=== PATIENT | male | born 1975 | race Caucasian/White ===

== ENCOUNTER 2017-08-19 22:40 | Observation (INO) ==
[2017-08-20] MEDS ORDERED: Naloxone 0.4 MG/ML INJ IVP PRN (01:57)
[2017-08-20] MEDS ORDERED: D5% in Water 1,000 ML IVC PRN ×2 (02:02→13:26)
[2017-08-20] MEDS ORDERED: *HR* Dextrose 50 % in Water (Syg) 50 ML SYRINGE IVP PRN ×2 (02:02→13:26)
[2017-08-20] MEDS ORDERED: Dextrose Gel 15 GM/37.5 ML TUBE PO PRN ×4 (02:02→13:26)
--- NOTE | 2017-08-20 02:13 | Internal Med History&Physical ---
Date of Encounter: 08/20/17 Time of Encounter: 01:40 Internal Medicine - H&P: HPI Chief complaint: transferred from [place] [facility] for chest pain Admitted From: Hospital to Hospital Transfer Plans for Post Hospital Care: Home History of present illness: Mr. Arango is a 41 year old male with PMH of HTN, DM, HLD who was transferred from [facility] for evaluation of chest pain. Pt reported of having acute onset of localized, sharp, substernal chest pain that started yesterday evening. He reported of worsening of pain with deep inspiration. Reported of nausea and diaphoresis with the chest pain. Pt has extensive family cardiac history with both parents diagnosed with CAD before the age of 40. His pain is reproducible with palpation, however he reported resolution of pain after receiving nitroglycerin SL. At this time he is resting in bed and does not appear to be in any distress, however reports of persistent chest pain, he does however state that his pain is better since his hospitalization. EKG at [place]: NSR labs: WBC: 12.4 Hgb: 17.1 Hct: 49.6 Plt: 272 TNI: <0.012, Na: 140, K: 3.8, BUN: 14, CREA: 0.87, Gluc: 223 Past Med Surg Social Fam HX - Past Medical History Medical history: diabetes, hyperlipidemia, hypertension Psychiatric history: no psych history - Past Surgical History Surgical History: no surgical history - Social History Smoking Status: Never smoker Smokeless Tobacco Status: No Alcohol use: none Drug use: none - Family History Father Name: BRIDGER Living Status: Still Living Hx Family Cardiac Disorders: Yes (TRIPLE BYPASS) Internal Medicine - H&P: Meds Sulfamethoxazole/Trimeth DS [Bactrim DS] 1 each PO BID #20 tablet 06/04/15 [Rx] cephALEXin [Keflex] 500 mg PO QID #40 capsule 06/04/15 [Rx] Canagliflozin [Invokana] 100 mg PO DAILY 08/20/17 [History] 3 Allergy/AdvReac Type Severity Reaction Status Date / Time No Known Allergies Allergy Verified 06/04/15 19:33 All Systems PM: A 10-system review of systems was performed and is negative for pertinent findings except as documented above in the HPI. - Constitutional Constitutional: as per HPI, no chills, no fatigue, no fever(s), no night sweats , no weakness - Constitutional Vitals: Temp Pulse Resp BP Pulse Ox 97.6 F 94 18 113/78 96 08/20/17 00:44 08/20/17 00:44 08/20/17 00:44 08/20/17 00:44 08/20/17 00:44 General appearance: Present: A&O X 3, no acute distress, obese - Head Head exam: Present: atraumatic, normocephalic - Eye Eye exam: Present: conjuntiva pink, sclera anicteric - Respiratory Respiratory exam: Present: CTAB. Absent: accessory muscle use, rales, rhonchi, wheezes - Cardiovascular Cardiovascular exam: Present: RRR, +S1, +S2. Absent: diastolic murmur, gallop, rubs, systolic murmur - GI/Abdominal GI/Abdominal exam: Present: normal bowel sounds, soft, no peritoneal signs. Absent: distended, tenderness - Extremities Exam Extremities exam: Present: warm, radial pulses palpable and symmetrical. Absent : calf tenderness, pedal edema - Neurological Exam Neurological exam: Present: oriented X3 - Assessment and plan (1) Chest pain Current Visit: Yes Status: Acute Assessment and plan: given family history and risk factors will admit to r/o ACS nuclear stress test in am npo after midnight trend serial TNI f/u 2D echo tele monitoring nitroglycerin SL prn chest pain ASA, lipitor will continue to closely monitor consider cardiology evaluation if above test findings are abnormal Qualifiers: Chest pain type: unspecified Qualified Code(s): R07.9 - Chest pain, unspecified (2) Diabetes mellitus Current Visit: Yes Status: Chronic Assessment and plan: hold oral antihyperglycemic agents Insulin SS monitor accuchecks q4h while NPO and ACHS once diet is resumed IV fluids while NPO continue to closely monitor FS and BG Qualifiers: Diabetes mellitus type: type 2 Diabetes mellitus mcfp insulin use: without mcfp use Diabetes mellitus complication status: with unspecified complications Qualified Code(s): E11.8 - Type 2 diabetes mellitus with unspecified complications (3) Hypertension Current Visit: Yes Status: Chronic Assessment and plan: BP within acceptable range continue home meds Qualifiers: Hypertension type: essential hypertension Qualified Code(s): I10 - Essential (primary) hypertension (4) Hyperlipidemia Current Visit: Yes Status: Chronic Assessment and plan: continue home dose of statin Qualifiers: Hyperlipidemia type: unspecified Qualified Code(s): E78.5 - Hyperlipidemia , unspecified (5) DVT prophylaxis Current Visit: Yes Status: Acute Assessment and plan: heparin SQ (6) Obesity (BMI 30.0-34.9) Current Visit: Yes Status: Acute - Time Spent With Patient Total time spent is greater than 50% in coordination of care (as documented) at patient's floor/unit and/or counseling patient:
[2017-08-20] MEDS: 0.9 % Sodium Chloride 1,000 ML IVC SCH ×2 (02:36→21:27)
[2017-08-20 02:41] LABS: Basophils # 0.1 K/mcL (0.0-0.2); Basophils % 0.4 %; Eosinophils % 0.1 %; Hematocrit 47.9 % (37.5-50.1); Hemoglobin 16.5 g/dL (12.9-16.9); Immature Granulocytes % 0.5 % (0-4); Lymphocytes # 1.1 K/mcL (0.6-4.6); Lymphocytes % 5.7 %; Mean Corpuscular HGB Conc 34.4 g/dL (31.6-35.5); Mean Corpuscular Volume 78.4 fL (83.0-100.0); Mean Platelet Volume 10.3 fL (9.4-12.4); Monocytes # 1.1 K/mcL (0.0-1.3); Monocytes % 5.7 %; Neutrophils # 16.6 K/mcL (1.6-8.9); Platelet Count 214 K/mcL (140-400); Red Blood Count 6.11 M/mcL (4.19-5.50); Red Cell Distribution Width 13.5 % (11.5-14.5); Segmented Neutrophils % 87.6 %
[2017-08-20] MEDS: Insulin LISPRO 300 UNITS/3 ML VIAL SQ SCH ×4 (02:46→17:52)
[2017-08-20] MEDS: Nitroglycerin 0.4 MG TAB.SUBL SL PRN (02:47)
[2017-08-20 03:01] LABS: BUN/Creatinine Ratio 17 (6-26); Blood Urea Nitrogen 16 mg/dL (6-20); Calcium 9.5 mg/dL (8.6-10.3); Carbon Dioxide 22 mEq/L (23-29); Chloride 100 mEq/L (98-107); Glucose 264 mg/dL (70-105); Osmolality,Calculated 290 (280-300); Potassium 4.3 mEq/L (3.5-5.1); Sodium 135 mEq/L (136-145); eGFR For African Americans > 60 (> 60); eGFR For Non-African Americans > 60 (> 60)
[2017-08-20 03:02] LABS: Chol/HDL Ratio 2.9 (0-4.9); Magnesium 2.2 mg/dL (1.6-2.6); Phosphorous 4.3 mg/dL (2.7-4.5)
[2017-08-20] MEDS: *HR* Heparin 5,000 UNIT/ML VIAL SQ SCH ×2 (07:37→17:07)
--- NOTE | 2017-08-20 11:25 | Event Note ---
Date of Encounter: 08/20/17 Time of Encounter: 11:30 seen and assessed. Agree with plan per night time hospitalist. 1. F/U 2d echo and stress test for chest pain 2. Leukocytosis and tachycardia. WBC is 18. Unclear etiology. Obtain pancultures , urinalysis, cxr. Started empircally on zosyn. can d/c antibiotics if workup is negative
[2017-08-20] MEDS ORDERED: Piperacillin/Tazobactam 3.375 GM in 0.9 % Sodium Chloride Mini Bag 100 ML IVPB SCH (12:00)
[2017-08-20] MEDS ORDERED: Regadenoson 0.4 MG/5 ML SYRINGE IVP ONE (12:06)
[2017-08-20] MEDS: Regadenoson 0.4 MG/5 ML SYRINGE IVP ONE ×2 (12:07→12:18)
[2017-08-20] MEDS: Aspirin 81 MG TAB.CHEW PO SCH (14:45)
--- NOTE | 2017-08-20 15:51 | Cardiology Consult Note ---
<Mekhi Wagner Delia - Last Filed: 08/20/17 15:46> Date of Encounter: 08/20/17 Time of Encounter: 15:46 Assessment and Plan (1) Chest pain Current Visit: Yes Status: Acute C/o chest pain and diaphoresis. Pain mildy reproducible. Troponin negative. EKG with no acute ST changes. Stress test was negative. Cardiac risk factors include significant family history (brother 39 years old, both parents with IN in 40's, grandfather IN at 51), and DM. Continued monitoring verses C discussed. Due to continued chest pain and multiple risk factors patient agrees to [facility]. Qualifiers: Chest pain type: unspecified Qualified Code(s): R07.9 - Chest pain, unspecified Discussion w patient/family: The assessment and plan as outlined above was discussed with the patient and/or family members who expressed understanding and agreement. All questions were answered. Thank you for involving us in the care of your patient. Please call with any questions. History of Present Illness Consult date: 08/20/17 Consult reason: chest pain Chief complaint: Chest pain, diaphoresis History of present illness: Mr. Arango is a 41 year old male with past medical history of DM type II and traumatic brain injury who presented with the c/o mid-sternal chest pain starting last night. His family reports severe chest pain associated with diaphoresis. He denies aggravating factors. He also developed diarrhea shortly after. Family says it is not uncommon for him to have diarrhea. He denies SOB. Past Med Surg Social Fam HX - Past Medical History Medical history: diabetes Psychiatric history: no psych history - Past Surgical History Surgical History: no surgical history - Social History Smoking Status: Never smoker Smokeless Tobacco Status: No Alcohol use: none Drug use: none - Family History Father Name: BRIDGER Living Status: Still Living Hx Family Cardiac Disorders: Yes (TRIPLE BYPASS) Medications and Allergies Atorvastatin Calcium [Lipitor] 80 mg PO HS 08/20/17 [History] Canagliflozin [Invokana] 100 mg PO DAILY 08/20/17 [History] Dulaglutide [Trulicity] 0.5 ml SQ QWEEK 08/20/17 [History] Insulin ASPART [NovoLOG] 4 units SQ TIDWM 08/20/17 [History] Ramipril [Altace] 5 mg PO DAILY 08/20/17 [History] 3 Allergy/AdvReac Type Severity Reaction Status Date / Time No Known Allergies Allergy Verified 08/20/17 10:06 All Systems Review: The remainder of the systems were reviewed and are negative Physical Examination Vital Signs, Last 4 Hours Temp Pulse Resp BP Pulse Ox 08/20/17 14:10 97.9 F 89 16 119/77 98 General: Conversant, No Apparent Distress HEENT: Atraumatic, Normocephaly, Mucus Membranes Moist Neck: No JVD, Normal carotid pulses Cardiac: Reg Rate and Rhythm, Normal S1 and S2, No Murmur Lungs: Normal Breath Sounds, No Wheeze, Rales, Rhonchi Neuro: Alert and responsive, No focal deficits noted Abdomen: Soft, Non-Tender Skin: No rashes noted on visualized skin Musculoskeletal: Other (c/o pain with palpation) Extremities: No Clubbing, No Cyanosis, No Edema, Normal Pulses Results 08/20/17 02:31 08/20/17 02:31 Lab Results 08/20/17 08/20/17 08/20/17 02:31 02:31 02:31 WBC 18.9 H Hgb 16.5 Hct 47.9 Plt Count 214 Sodium 135 L Potassium 4.3 Chloride 100 Carbon Dioxide 22 L BUN 16 Creatinine 0.96 Glucose 264 H Calcium 9.5 Magnesium 2.2 Troponin I 08/20/17 08/20/17 08/20/17 02:31 08:20 14:38 WBC Hgb Hct Plt Count Sodium Potassium Chloride Carbon Dioxide BUN Creatinine Glucose Calcium Magnesium Troponin I < 0.03 < 0.03 < 0.03 - Imaging and Cardiology Stress Test: report reviewed - EKG Interpretation EKG results cardiology: personally reviewed Consult Discharge Plan - Plan Referrals: Cony Lane MD [Primary Care Provider] - <Mackenzie Kam - Last Filed: 08/20/17 16:27> Date of Encounter: 08/20/17 - Attending Attestation I have personally performed a face to face evaluation on this patient. I have reviewed and agree with the care plan. History and Exam by me shows: Unstable Angina with multiple CRF's and ongoing chest pain despite negative stress test. Very strong family history of CAD. C is reasonable Assessment and Plan Discussion w patient/family: The assessment and plan as outlined above was discussed with the patient and/or family members who expressed understanding and agreement. All questions were answered. Thank you for involving us in the care of your patient. Please call with any questions. History of Present Illness History of present illness: Mr. Arango is a 41 year old male All Systems Review: The remainder of the systems were reviewed and are negative Physical Examination Vital Signs, Last 4 Hours Temp Pulse Resp BP Pulse Ox 08/20/17 14:10 97.9 F 89 16 119/77 98 Results 08/20/17 02:31 08/20/17 02:31 Lab Results 08/20/17 08/20/17 08/20/17 02:31 02:31 02:31 WBC 18.9 H Hgb 16.5 Hct 47.9 Plt Count 214 Sodium 135 L Potassium 4.3 Chloride 100 Carbon Dioxide 22 L BUN 16 Creatinine 0.96 Glucose 264 H Calcium 9.5 Magnesium 2.2 Troponin I 08/20/17 08/20/17 08/20/17 02:31 08:20 14:38 WBC Hgb Hct Plt Count Sodium Potassium Chloride Carbon Dioxide BUN Creatinine Glucose Calcium Magnesium Troponin I < 0.03 < 0.03 < 0.03
[2017-08-20] MEDS: MetroNIDAZOLE 500 MG/100 ML 500 MG/100 ML BAG IVPB SCH (17:06)
[2017-08-20] MEDS: Insulin DETEMIR 100 UNIT/ML X5UNITS SQ SCH (21:24)
[2017-08-21 01:46] LABS: Basophils # 0.1 K/mcL (0.0-0.2); Basophils % 0.8 %; Eosinophils # 0.1 K/mcL (0.0-0.6); Eosinophils % 2.1 %; Hematocrit 40.9 % (37.5-50.1); Immature Granulocytes % 0.3 % (0-4); Lymphocytes # 2.8 K/mcL (0.6-4.6); Lymphocytes % 42.9 %; Mean Corpuscular HGB Conc 34.2 g/dL (31.6-35.5); Mean Corpuscular Hemoglobin 27.5 pg (28.0-33.3); Mean Corpuscular Volume 80.2 fL (83.0-100.0); Mean Platelet Volume 10.2 fL (9.4-12.4); Monocytes # 0.6 K/mcL (0.0-1.3); Monocytes % 8.7 %; Platelet Count 183 K/mcL (140-400); Red Cell Distribution Width 13.7 % (11.5-14.5); Segmented Neutrophils % 45.2 %
[2017-08-21 02:04] LABS: BUN/Creatinine Ratio 22 (6-26); Blood Urea Nitrogen 22 mg/dL (6-20); Calcium 8.2 mg/dL (8.6-10.3); Carbon Dioxide 27 mEq/L (23-29); Chloride 105 mEq/L (98-107); Glucose 215 mg/dL (70-105); Osmolality,Calculated 298 (280-300); Potassium 3.9 mEq/L (3.5-5.1); Sodium 139 mEq/L (136-145); eGFR For African Americans > 60 (> 60); eGFR For Non-African Americans > 60 (> 60)
[2017-08-21] MEDS: MetroNIDAZOLE 500 MG/100 ML 500 MG/100 ML BAG IVPB SCH ×4 (03:17→23:47)
[2017-08-21] MEDS: Nitroglycerin 0.4 MG TAB.SUBL SL PRN ×2 (03:17→03:26)
[2017-08-21] MEDS: *HR* Heparin 5,000 UNIT/ML VIAL SQ SCH ×2 (06:40→18:06)
[2017-08-21] MEDS: Insulin LISPRO 300 UNITS/3 ML VIAL SQ SCH ×3 (07:54→18:06)
[2017-08-21] MEDS: Aspirin 81 MG TAB.CHEW PO SCH (08:11)
[2017-08-21] MEDS ORDERED: 0.9 % Sodium Chloride 1,000 ML ONE ×2 (08:55→09:32)
[2017-08-21] MEDS ORDERED: ISOVUE-370 200 ML INFUS..BTL IV ONE (08:55)
[2017-08-21] MEDS ORDERED: *HR* Heparin 10,000 UNIT/10 ML VIAL ONE (08:55)
[2017-08-21] MEDS ORDERED: Heparin 1,000 UNITS/500 mL 500 ML ONE (08:55)
--- NOTE | 2017-08-21 08:55 | Event Note ---
Date of Encounter: 08/21/17 Time of Encounter: 08:53 - Cardiology Event Note Mr. Arango continues to have chest pain today. Denies SOB. C not unreasonable for angina despite normal stress test in the setting of multiple cardiac risk factors. Patient and family agree to proceed as planned. All questions answered.
[2017-08-21] MEDS ORDERED: Nitroglycerin 1,000 MCG/10 ML VIAL IV ONE (08:56)
[2017-08-21] MEDS ORDERED: *HR* Bivalirudin 250 MG VIAL IVC ONE (09:09)
[2017-08-21] MEDS ORDERED: *HR* Midazolam HCl 2 MG/2 ML VIAL ONE (09:45)
--- NOTE | 2017-08-21 09:54 | Pre-Sedation Evaluation ---
Pre-sedation evaluation - Pre-sedation checklist Date of procedure: 08/21/17 Procedure: heart cath Recent Vitals: Last Vital Signs Temp 98.7 F 08/21/17 07:00 Pulse 83 08/21/17 07:00 Resp 16 08/21/17 07:00 BP 109/64 08/21/17 07:00 Pulse Ox 95 08/21/17 07:00 H&P (including ROS) documented in medical record: Yes Previous reaction to sedatives/anesthetics: Unknown Dietary Status: NPO after Midnight Airway Assessment: Patient can open mouth completely, TMJ function normal Dentition: No loose teeth or bridges Possible difficult airway: No ASA Classification *see protocol: CLASS II-Mild systemic disease Plan of Care: Pt appropriate candidate for procedure/moderate/conscious sedation , Risks/benefits of procedure/sedation discussed w/ patient/family, If not NPO; Risk of intake outweiged by necessity to perform procedure
[2017-08-21] MEDS ORDERED: 0.9 % Sodium Chloride 1,000 ML IVC SCH (11:00)
--- NOTE | 2017-08-21 12:13 | Internal Med Progress Note ---
Date of Encounter: 08/21/17 Time of Encounter: 12:08 - Assessment and plan (1) Chest pain Current Visit: Yes Status: Acute Assessment and plan: 41-year-old male with CV risk factors occluding obesity, hypertension, hyperlipidemia, and diabetes presented with acute onset of chest pain. It is typical chest pain per patient description. He underwent stress test, echocardiogram, and a left heart catheter, which all revealed normal results. Cardiology recommended GI workup. Discussed with patient about all the test result, we will order CT of chest and abdomen. We will will consult GI if needed. Qualifiers: Chest pain type: unspecified Qualified Code(s): R07.9 - Chest pain, unspecified (2) Diabetes mellitus Current Visit: Yes Status: Chronic Assessment and plan: Continue home insulin regimen, continue insulin sliding scale. 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 care home use Diabetes mellitus complication status: with unspecified complications Qualified Code(s): E11.8 - Type 2 diabetes mellitus with unspecified complications (3) Hypertension Current Visit: Yes Status: Chronic Assessment and plan: BP within acceptable range continue home meds Qualifiers: Hypertension type: essential hypertension Qualified Code(s): I10 - Essential (primary) hypertension (4) Hyperlipidemia Current Visit: Yes Status: Chronic Assessment and plan: continue home dose of statin Qualifiers: Hyperlipidemia type: unspecified Qualified Code(s): E78.5 - Hyperlipidemia , unspecified (5) DVT prophylaxis Current Visit: Yes Status: Acute Assessment and plan: heparin SQ (6) Obesity (BMI 30.0-34.9) Current Visit: Yes Status: Acute - Time Spent With Patient Total time spent is greater than 50% in coordination of care (as documented) at patient's floor/unit and/or counseling patient: Greater than 35 minutes - Subjective Interval history: Patient just came back from catheter lab, he currently has no chest pain, he denies any fever, chills, or night sweats. - Constitutional Vitals: Temp Pulse Resp BP Pulse Ox 98.3 F 70 16 122/89 98 08/21/17 11:36 08/21/17 11:36 08/21/17 11:36 08/21/17 11:36 08/21/17 11:36 General appearance: Present: A&O X 3, no acute distress, obese Exam: PHYSICAL EXAMINATION: GENERAL APPEARANCE: The patient is alert, oriented and in no acute distress. HEENT: Head is normocephalic. The sinuses are nontender. Pupils are equal and reactive. The nares are patent. Oropharynx clear without lesions. NECK: Supple without lymphadenopathy. HEART: Regular rate and rhythm. LUNGS: No crackles or wheezes are heard. ABDOMEN: Soft, nontender, nondistended with good bowel sounds heard. Inguinal area is normal. EXTREMITIES: Without cyanosis, clubbing or edema. NEUROLOGICAL: Gross nonfocal. SKIN: Warm and dry without any rash. Internal Medicine: Result - Labs CBC & Chem 7: 08/21/17 01:30 08/21/17 01:30 Labs: Short CBC 08/21/17 Range/Units 01:30 WBC 6.6 D (4.3-11.1) K/mcL Hgb 14.0 D (12.9-16.9) g/dL Hct 40.9 (37.5-50.1) % Plt Count 183 (140-400) K/mcL Neutrophils # 3.0 (1.6-8.9) K/mcL BMP 08/21/17 01:30 Sodium 139 Potassium 3.9 Chloride 105 Carbon Dioxide 27 BUN 22 H Creatinine 0.99 Glucose 215 H Calcium 8.2 L Cardiac Enzymes 08/20/17 Range/Units 14:38 Troponin I < 0.03 (< 0.04) ng/mL - Impressions Impressions Echocardiogram 08/20/17 02:00 Impressions: LVEF 60-65%. Normal LV chamber size, wall thickness and function. Mild left ventricular diastolic dysfunction. Normal right ventricular structure and function. No evidence of pulmonary hypertension. No significant valvular dysfunction. Left Ventricular Wall Motion: Rest Echo Findings All wall segments showed normal motion. Findings: Study Quality * Technically adequate exam. ECG Findings * Normal sinus rhythm. Left Ventricle * LVEF 60-65%. * Normal LV chamber size, wall thickness and function. * Mild left ventricular diastolic dysfunction. Right Ventricle * Normal right ventricular structure and function. Left Atrium * Normal left atrial size. Right Atrium * Normal right atrial size. Aortic Valve * Trileaflet aortic valve with normal function. * No aortic regurgitation. * No aortic stenosis. Mitral Valve * Normal mitral valve structure and function. * No mitral regurgitation. * No mitral stenosis. Tricuspid Valve * Normal tricuspid valve structure and function. * Trace tricuspid regurgitation. * No evidence of pulmonary hypertension. Pulmonic Valve * Normal pulmonic valve structure and function. * No pulmonic regurgitation. Aorta * Normally sized aortic root. Pericardium * The pericardium appears normal. IVC * Normal IVC dimensions and inspiratory collapse. Pulmonary Artery * Normal visualized portions of the main pulmonary artery. Chest X-Ray 08/20/17 11:28 IMPRESSION: No acute findings D/ / Nelia Peralta MD / Nelia Peralta MD Interpreting Provider: Nelia Peralta MD Consult Discharge Plan - Plan Referrals: Cony Lane MD [Primary Care Provider] -
--- NOTE | 2017-08-21 13:14 | Event Note ---
Date of Encounter: 08/21/17 Time of Encounter: 12:00 - Cardiology Event Note Discussed with Dr. Blunt. [facility] showed non-obstructive disease. No intervention. Recommend GI evaluation for on-going symptoms. Cardiology will sign off. Call with questions.
[2017-08-21] MEDS: Insulin DETEMIR 100 UNIT/ML X5UNITS SQ SCH (22:07)
[2017-08-22 00:58] LABS: Basophils % 0.7 %; Eosinophils # 0.1 K/mcL (0.0-0.6); Eosinophils % 1.2 %; Immature Granulocytes % 0.2 % (0-4); Lymphocytes # 2.2 K/mcL (0.6-4.6); Lymphocytes % 38.7 %; Mean Corpuscular HGB Conc 33.3 g/dL (31.6-35.5); Mean Corpuscular Hemoglobin 26.7 pg (28.0-33.3); Mean Corpuscular Volume 80.1 fL (83.0-100.0); Mean Platelet Volume 10.4 fL (9.4-12.4); Monocytes # 0.5 K/mcL (0.0-1.3); Monocytes % 8.7 %; Neutrophils # 2.9 K/mcL (1.6-8.9); Platelet Count 163 K/mcL (140-400); Red Blood Count 4.87 M/mcL (4.19-5.50); Red Cell Distribution Width 13.8 % (11.5-14.5); Segmented Neutrophils % 50.5 %
[2017-08-22 01:17] LABS: BUN/Creatinine Ratio 18 (6-26); Blood Urea Nitrogen 17 mg/dL (6-20); Carbon Dioxide 24 mEq/L (23-29); Chloride 109 mEq/L (98-107); Glucose 261 mg/dL (70-105); Osmolality,Calculated 297 (280-300); Potassium 4.1 mEq/L (3.5-5.1); Sodium 138 mEq/L (136-145); eGFR For African Americans > 60 (> 60); eGFR For Non-African Americans > 60 (> 60)
[2017-08-22] MEDS: MetroNIDAZOLE 500 MG/100 ML 500 MG/100 ML BAG IVPB SCH (08:13)
[2017-08-22] MEDS: Aspirin 81 MG TAB.CHEW PO SCH (08:13)
[2017-08-22] MEDS: *HR* Heparin 5,000 UNIT/ML VIAL SQ SCH (08:13)
[2017-08-22] MEDS: Insulin LISPRO 300 UNITS/3 ML VIAL SQ SCH (08:18)
[2017-08-22] MEDS ORDERED: Isovue-370 500 ML INFUS..BTL IV ONE (11:58)
[2017-08-22 15:14] VITALS: BP 131/76
--- NOTE | 2017-08-22 15:31 | Discharge Summary ---
- NOTES TO OUTPATIENT PROVIDER Notes to Outpatient Provider: Epigastric pain, ACS ruled out; Orders not resulted at time of discharge: Pending orders 08/20/17 02:00 NM syd perf SPECT multi [NM] Routine 08/20/17 13:49 Culture,Blood [BC] Routine 08/23/17 04:00 Basic Metabolic Panel AM 0400 CBC [Complete Blood Count] [HEME] AM 0400 08/24/17 04:00 Basic Metabolic Panel AM 0400 CBC [Complete Blood Count] [HEME] AM 04008/25/17 04:00 Basic Metabolic Panel AM 0400 CBC [Complete Blood Count] [HEME] AM 0400 08/26/17 04:00 Basic Metabolic Panel AM 0400 CBC [Complete Blood Count] [HEME] AM 040 Date of Encounter: 08/22/17 Time of Encounter: 12:20 - Discharge Diagnosis (1) Chest pain Priority: Primary Status: Acute Qualifiers: Chest pain type: unspecified Qualified Code(s): R07.9 - Chest pain, unspecified (2) Diabetes mellitus Priority: Secondary Status: Chronic Qualifiers: Diabetes mellitus type: type 2 Diabetes mellitus superintendent container terminal insulin use: without senior living use Diabetes mellitus complication status: with unspecified complications Qualified Code(s): E11.8 - Type 2 diabetes mellitus with unspecified complications (3) Hypertension Priority: Secondary Status: Chronic Qualifiers: Hypertension type: essential hypertension Qualified Code(s): I10 - Essential (primary) hypertension (4) Hyperlipidemia Priority: Secondary Status: Chronic Qualifiers: Hyperlipidemia type: unspecified Qualified Code(s): E78.5 - Hyperlipidemia , unspecified (5) Obesity (BMI 30.0-34.9) Priority: Secondary Status: Chronic Hospital course: Mr. Arango is a 41 year old male with the above medical problems, who was admitted with chest pain. Telemetry monitoring and serial troponins remained negative. Cardiology was consulted due to strong family history of coronary artery disease and ongoing chest pain. Echocardiogram showed preserved ejection fraction, mild left ventricular diastolic dysfunction. Nuclear stress test was negative for ischemia or infarct. Left heart catheterization was done , showed normal coronaries. CT abdomen/pelvis showed no acute abnormality. Patient's epigastric pain is much improved today, he tolerates oral diet, remains hemodynamically stable. He is encouraged to follow up with PCP as outpatient and is being discharged on PPI. Discharge discussed with: patient - Time Spent with Patient Total time spent providing and/or coordinating discharge services: Greater than 30 minutes (40 min) - Discharge Medications Prescriptions: Omeprazole [PriLOSEC] 20 mg PO DAILY #30 cap Home Medications: Atorvastatin Calcium [Lipitor] 80 mg PO HS 08/20/17 [History] Canagliflozin [Invokana] 100 mg PO DAILY 08/20/17 [History] Dulaglutide [Trulicity] 0.5 ml SQ QWEEK 08/20/17 [History] Insulin ASPART [NovoLOG] 4 units SQ TIDWM 08/20/17 [History] Ramipril [Altace] 5 mg PO DAILY 08/20/17 [History] Omeprazole [PriLOSEC] 20 mg PO DAILY #30 cap 08/22/17 [Rx] Allergies/Adverse Reactions: 3 Allergy/AdvReac Type Severity Reaction Status Date / Time No Known Allergies Allergy Verified 08/20/17 10:06 Date of admission: 08/20/17 00:19 Primary care physician: Joyce Almodovar Consults: 08/20/17 13:20 Consult to Cardiology [CONS] Routine Comment: Consulting Provider: Cardiology Wolsey Reason for Consult: chest pain Call Completed: Yes Discharging clinician: Makeda Reddy Anticipated date of discharge: 08/22/17 - Constitutional Vitals: Temp Pulse Resp BP Pulse Ox 97.9 F 64 18 131/76 97 08/22/17 15:13 08/22/17 15:13 08/22/17 15:13 08/22/17 15:13 08/22/17 15:13 General appearance: Present: A&O X 3, obese, answers questions appropriately - Respiratory Respiratory exam: Present: CTAB. Absent: accessory muscle use, rales, rhonchi, wheezes - Cardiovascular Cardiovascular exam: Present: RRR, +S1, +S2. Absent: diastolic murmur, gallop, rubs, systolic murmur - Patient Status Disposition: Home, Self-Care Condition: Good Functional capacity at discharge: independent ambulation Overall status at discharge: patient is progressing back to baseline - Discharge Instructions Follow Up With: Cony Lane MD [Primary Care Provider] - Additional Instructions: RISK FACTORS: STOP SMOKING: If you smoke, STOP. Smoking or tobacco use significantly increases your risk of heart disease because nicotine causes the arteries to narrow or constrict. It also causes fats to stick to the artery. Your chances of having a heart attack are greatly increased if you continue to smoke. For more information, call the education line for smoking cessation 6-663-HWULBLA EAT A LOW FAT/CHOLESTEROL/SODIUM DIET: This diet may help reduce your chances of having a heart attack. LIFTING: Avoid lifting anything more than 10 pounds for 5-7 days Prior to straining, laughing, sneezing and/or coughing, apply manual pressure directly over insertion site. ACTIVITY: You may walk or climb stairs as tolerated You can resume sexual activity as tolerated In general, you are encouraged to engage in a minimum of 30 minutes or more of moderate intensity physical activity, such as brisk walking, daily or at least 3 -4 times weekly BATHING Do not submerge the site into water (bath tub, hot tub, swimming pool) for 1 week. This can be a source for infection into the blood stream. You may shower after 24 hours SITE CARE: After 24 hours, you may remove the dressing and leave the site open to air. Keep the site clean and dry. Clean gently and pat dry. You can expect bruising and tenderness that gradually resolve within a week or two. Return to work as instructed per your physician Resume driving as instructed per physician Keep all scheduled follow up appointments Resume medications as instructed IMPORTANT: If prescribed a Platelet Aggregation Inhibitor such as, Plavix, Brilinta or Effient: Duration of therapy is minimum one year These medications are often used in combination with Aspirin in prevention of future heart attacks Never discontinue unless consult with your Sand Buffer STROKE (CVA) Risk factors for a stroke are: Age, cigarette smoking, diabetes, excessive alcohol consumption, family history, high blood pressure, overweight, physical inactivity, prior stroke, heart attack, diagnosis of carotid artery stenosis or other artery disease. Warning signs: Sudden numbness or weakness of the face, arm or leg; especially on one side of the body, sudden confusion, trouble speaking or understanding, sudden trouble seeing in one or both eyes, sudden trouble walking, dizziness, loss of balance or coordination, sudden severe headache with no cause. Call 911 or go to the Emergency Room. CONGESTIVE HEART FAILURE: If you have been diagnosed with Congestive Heart Failure (CHF) and your symptoms return, make an appointment with your physician Weigh yourself daily. Notify your physician if you have a weight gain of two or more pounds in one day or five or more pounds in one week. If you experience any difficulty breathing, please call 911 BLEEDING: Although the risk of bleeding is minimal, it can happen. If you have any bleeding from the site, apply firm pressure above the puncture site for 10-15 minutes. If the bleeding does not stop, continue manual pressure and call 911 Contact your physician if: You develop a fever greater than 101 degrees Fahrenheit Your site becomes reddened or has any drainage You have an increase in pain or burning at the site or if a large knot forms at the site. If you experience chest pain, shortness of breath, dizziness, or extreme tiredness, stop the activity and rest. Please notify your physicians office if you experience any of these symptoms and they are not relieved by rest please call 911!F/up with PCP in 1-2 weeks - Diet and Activity Activity: resume usual activities as tolerated Diet: diabetic diet, low fat, low cholesterol, low salt diet
--- NOTE | 2017-09-07 12:24 | Invasive Diagnostic Lab Proc ---
Name: Onesimo Arango Date of Study: 08/21/2017 Date: 1975 Ht: 70.0in Medical Record#: [id number] Age: 41 Wt: 235.89lb Gender: Male BSA: 2.24 Order #: [id number] BMI: 33.85 Physicians Procedure Physician: Chay Blunt DO Referring MD: Referring MD: Staff Name Position Time In Radha Moser RT Scrub 09:54 AM Octavia Zacarias RT (R) Monitor 09:54 AM Vic Vicente RN Mine Motor Engineer 09:55 AM Indications Indication Unstable Angina Procedures Performed Procedure L HRT ARTERY/VENTRICLE ANGIO Pre-Procedure Checklist Pt not NPO for procedure and MD aware. Plan of Care Patient will tolerate the procedure without complications. Adequate level of comfort will be maintained. Hemodynamics will remain stable Patient will recover from procedure without complications. Respiratory function will be maintained. Cardiac rhythm will remain stable. Patient temperature will be maintained. Patient and/or family have verbalized understanding of the procedure. Patient Education Allergies No Known Allergies Vital Signs Time BP (mmHg) HR (bpm) O2 Sat. RR (bpm) LOC 09:56 AM / % 5 = Fully awake and oriented or at pre-proc level 09:56 AM / % 4 = Oriented but drowsy 10:12 AM / % 4 = Oriented but drowsy 09:56 AM 120 / 74 57 100 % 10:01 AM 121 / 69 71 97 % 10:06 AM 119 / 68 72 97 % 10:11 AM 113 / 74 69 99 % 10:16 AM 114 / 80 77 100 % 10:21 AM 123 / 72 72 99 % Procedural Medications Time Medication Dose Units Method Given By 09:55 AM Oxygen 2 L/min nasal cannula Vic Vicente RN 09:57 AM Versed 2 mg Intravenous Vic Vicente RN 10:09 AM Lidocaine 2% 10 ml Subcutaneous Chay Blunt DO ASA Classification: CLASS II- Mild systemic disease (i.e. well-controlled diabetes, hypertension, asthma, cigarette smoking) Leatha Score Preprocedure Postprocedure Activity 2- Moves 4 extremities sustained head lift Activity 2- Moves 4 extremities sustained head lift Circulation 2- SBP +/= 20 points of pre-anesthetic level Circulation 2- SBP +/= 20 points of pre-anesthetic level Consciousness 2- Awake and alert oriented x 3 Consciousness 2- Awake and alert oriented x 3 O2 Saturation 2- Able to maintain O2 satruation of 92% on room air O2 Saturation 2- Able to maintain O2 satruation of 92% on room air Respiratory 2- Able to deep breathe and cough well Respiratory 2- Able to deep breathe and cough well Total Score 10 Total Score 10 Contrast Agent: Isovue Diagnostic Contrast: 50 ml Total Contrast: 50 ml Fluoro Dose: 4901 mGy Procedure Log Time Note Enter By 09:08 AM CathStat 09:45 AM Octavia Zacarias RT (R) Position: Monitor Time in: :45 dsp 09:45 AM Vic Vicente RN Position: Mine Motor Engineer Time in: :45 09:45 AM Pt arrived to car barn laborer 2 at :45 09:45 AM Radha Moser RT Position: Scrub Time in: :45 09:47 AM Patient charges- Angio tray pack, Navilyst 3mm J, Pulse Oximetry and ACIST tubing and transducer ell 09:48 AM IV Supplies used: J loop Angio Cath. 09:50 AM Physician arrived 09:50 09:55 AM Hair removed from procedure site in holding area using clippers. Bilateral groin prepped with Chloraprep by Vic Vicente RN, then patient was draped. Skin intact. 09:55 AM Meet and greet completed :55 AM Sign in performed according to hospital policy. 09:55 AM Procedure start :55 :55 AM Time: :55 Oxygen on at 2 L/min per nasal cannula by Vic Vicente RN :56 AM Time: :56 Patient comfortable and pain free: Yes :56 AM Vitals capture started with the following parameters, Patient=Adult, Interval=5 min, Initial Vgymakyy=274 mmHg, Deflation Rate=5 mmHg, Cuff placed on Right Arm 09:56 AM Time: :56LOC: 5 = Fully awake and oriented or at pre-proc level dsp:56 AM HR=57 bpm, EINK=117/74 mmhg, ZzX0=475.0 %, Comment=NSR 09:58 AM Time: :57 Versed 2 mg Intravenous Given by Vic Vicente RN 10:01 AM Pressure channel 2 zeroed. 10:01 AM HR=71 bpm, KVFT=523/69 mmhg, SpO2=97.0 %, Comment=NSR 10:06 AM HR=72 bpm, KZAF=419/68 mmhg, SpO2=97.0 %, Comment=NSR 10:08 AM ASA Class CLASS II- Mild systemic disease (i.e. well-controlled diabetes, hypertension, asthma, cigarette smoking) 10: Clinical Presentation: Unstable angina dspell: AM Time out performed according to hospital policy : Time: :09 10 ml Lidocaine 2% to right groin Subcutaneous Given by Chay Blunt DO [facility]: Micro-Introducer Kit utilized for sheath placement dsp 10:11 AM HR=69 bpm, EKQP=137/74 mmhg, SpO2=99.0 %, Comment=NSR 10:11 AM Time: 09:56 Patient comfortable and pain free: Yes Time: 09:56LOC: 4 = Oriented but drowsy :12 AM Access obtained by percutaneous puncture. 5Fr 10cm Terumo Machias sheath placed in right Femoral artery. [id number] 10:12 AM 6Fr FR 4 catheter inserted over the wire [facility] :12 AM 0.035 145cm Navilyst 3mmJ wire [id number] 10:15 AM Recorded Pressure: LV, HR=72, Condition=Condition 1 (Left Ventricle) LV 45/-9/-9 10:15 AM Recorded Pressure: LV, Ao, HR=72, Condition=Condition 1 (Left Ventricle) LV 97/-1/5, (Aorta) Ao 101/65/82 10:16 AM HR=77 bpm, FQHZ=603/80 mmhg, PgK3=824.0 %, Comment=NSR 10:17 AM Catheter selectively placed in left ventricle :17 AM Bolus angiogram of left Ventricle complete: 10 ml/sec for a total of mls dspell 10:17 AM RCA angiography performed in multiple views. dspell 10:17 AM Catheter removed dsp: AM 5Fr FL 4 catheter inserted over the wire [facility] 10:17 AM LCA angiography performed in multiple views. dspellman 10:18 AM Recorded Pressure: Ao, HR=75, Condition=Condition 1 (Aorta) Ao 81/51/65 10:18 AM Recorded Pressure: Ao, HR=74, Condition=Condition 1 (Aorta) Ao 99/58/77 10:19 AM Catheter removed dspellman 10:19 AM Bolus angiogram of right Femoral complete: 4 ml/sec for a total of 7 mls dspellman 10:19 AM Catheter removed dspellman 10:20 AM Coronary Dominance: right dspellman 10:21 AM HR=72 bpm, MJTH=061/72 mmhg, SpO2=99.0 %, Comment=NSR 10:22 AM Procedure completed at 10:22 dspellman 10:22 AM Did you address TATIANNA flow and Dominance? Yes dspellman 10:22 AM Sign out completed: Radiation Dose 415.93 mGy Fluoro Time: 2.9 Isovue 370 - 200ml contrast 50 ml given by Chay Blunt DO. Complications: NoneCardiac Rehab Consult needed: NoConfirmed administered medications: Yes dspellman 10:22 AM Isovue 370 - 200ml,1 Bottle(s) used. dspellman 10:23 AM Arterial sheath pulled using manual compression and V+ Pad for 10 minutes by Radha Moser RT dspellman 10:23 AM Estimated Blood Loss: minimal dspellman 10:23 AM Post ECG NSR dspellman 10:23 AM Post Blood Pressure 123/72 dspellman 10:23 AM 10:23 Post Pulses Bilateral DP & PT 2+ dspellman 10:23 AM Information taught Cardiac Cath dspellman 10:24 AM Education needs Procedure, Plan of Care, and Responsibilities of Patient in Care dspellman 10:24 AM Learning barriers :None dspellman 10:24 AM Education Methods Verbal dspellman 10:24 AM Education evaluation Able to repeat information dspellman 10:24 AM Delay to floor No dspellman 10:24 AM Family placed in consult room. dspellman 10:24 AM Complications: None dspellman 10:24 AM Fluoro Time: 2.9 dspellman 10:25 AM Isovue 370 - 200ml contrast [address] Blunt. dspellman 10:25 AM Radiation Dose 4900.90 mGy dspellman 10:27 AM Time: 10:12LOC: 4 = Oriented but drowsy dspellman 10:27 AM Time: 10:11 Patient comfortable and pain free: Yes dspellman 10:37 AM Report given to Zina DELVALLE Pt taken to [facility] Room #30. 10:36 dspellman 10:37 AM Site status No bleeding/hematoma - Rt Groin as reported by Radha Moser RT at 10:37 dspellman 10:37 AM Opsite applied dspellman 10:37 AM Patient out of room: 10:37 dspellman Complications Complication None None Hemodynamics Pressures Site Systolic/A Wave Diastolic/V Wave Mean LV 45 -9 -9 LV 97 -1 5 AO 101 65 82 AO 81 51 65 AO 99 58 77 Post Procedure Information Blood Pressure: 123/72 mmHg Rhythm: NSR Post procedural instructions were given Closure Device Time Device Success/Fail 08/21/2017 10:25:00 AM Manual Compression Successful Site Checks Time Location Status Staff Sheath In? Note 10:37 AM Rt Groin No bleeding/hematoma Radha Moser RT Pulses Time Site Pre-Procedure Post-Procedure Note 10:23:00 AM Bilateral DP & PT 2+ Updated by Octavia Zacarias RT (R) on 08/21/2017 10:38:33 AM electronically signed on 09/07/2017 12:17:48 PM with status of Final
== END 2017-08-22 17:21 | disposition home or self-care (01) ==
LOC: 3NENU → SUATTDRO 08-20 00:19
PROVIDERS: ADMIT Internal Medicine; ATTEND Internal Medicine